=== PATIENT | male | born 1980 | race Hispanic/Latino ===

== ENCOUNTER 2018-02-10 12:51 | Emergency (ER) | payer OTHER ==
[2018-02-10 13:09] VITALS: BP 140/81; PULSE 92; RESP 16; TEMP 98.1; O2SAT 99
--- NOTE | 2018-02-10 13:34 | ED PDOC ---
Upper Extremity Pain/Injury Time Seen by Provider: 02/10/18 13:12 Chief Complaint (Nursing): Upper Extremity Problem/Injury Chief Complaint (Provider): Upper Extremity Pain History Per: Patient History/Exam Limitations: no limitations Onset/Duration Of Symptoms: Days (3x) Current Symptoms Are (Timing): Still Present Quality: "Pain" Severity: Moderate Additional Complaint(s): 37 year old right hand dominant male presents with localized bruise to left forearm that he noticed as of this morning. Patient denies injury to affected area. He denies any numbness or tingling to affected area. Patient states he is concerned about possible clot in arm. He denies any chest pain, SOB or [place]. He denies any recent travel. Patient states for the past 1.5 years he has had pain and numbness to left side of neck and left arm. He has been seen by boiler riveter, neurosurgeon and neurologist and has had multiple CT's and MRI's but no findings have been noted as per patient. PMD: Oswaldo Isabel MD Past Medical History Reviewed: Historical Data, Nursing Documentation, Vital Signs Vital Signs: Last Vital Signs Temp 98.1 F 02/10/18 13:07 Pulse 92 H 02/10/18 13:07 Resp 16 02/10/18 13:07 BP 140/81 02/10/18 13:07 Pulse Ox 99 02/10/18 13:07 - Medical History PMH: No Chronic Diseases - Surgical History Surgical History: Hernia Repair - Family History Family History: States: No Known Family Hx - Living Arrangements Living Arrangements: With Family - Social History Current smoker - smoking cessation education provided: No Alcohol: Social Drugs: Denies - Home Medications Home Medications: Ambulatory Orders Medication Instructions Recorded Naproxen 500 mg PO BID #30 tablet. 02/27/17 Cephalexin [Keflex] 500 mg PO TID #21 capsule 02/10/18 Ibuprofen [Motrin Tab] 800 mg PO Q8 PRN #20 tab 02/10/18 - Allergies Allergies/Adverse Reactions: Allergies Allergy/AdvReac Type Severity Reaction Status Date / Time No Known Allergies Allergy Verified 02/26/17 21:02 Review of Systems ROS Statement: Except As Marked, All Systems Reviewed And Found Negative Constitutional: Negative for: Fever, Chills Cardiovascular: Negative for: Chest Pain, Palpitations Respiratory: Negative for: Shortness of Breath, SOB with Exertion Gastrointestinal: Negative for: Nausea, Vomiting Musculoskeletal: Positive for: Arm Pain (left forearm) Physical Exam - Reviewed Nursing Documentation Reviewed: Yes Vital Signs Reviewed: Yes - Physical Exam Appears: Positive for: Well, Non-toxic, No Acute Distress Head Exam: Positive for: ATRAUMATIC, NORMOCEPHALIC Skin: Positive for: Normal Color. Negative for: Rash Eye Exam: Positive for: Normal appearance Neck: Positive for: Normal Cardiovascular/Chest: Positive for: Regular Rate, Rhythm Respiratory: Positive for: Normal Breath Sounds. Negative for: Wheezing, Respiratory Distress Extremity: Positive for: Other (localized ecchymosis noted to palmar aspect of left forearm in linear distribution, no raised lesions, mild tenderness when palpated, no erythematous streaking, no warmth, normal sensation surrounding affected region, normal distal sensation) Neurologic/Psych: Positive for: Alert, Oriented (3x) - ECG O2 Sat by Pulse Oximetry: 99 (RA) Pulse Ox Interpretation: Normal - Other Rad Doppler left arm X-Ray: Read By Radiologist X-Ray Interpretation: see below Medical Decision Making Medical Decision Makin:12 Initial impression: 37 year old male with left forearm pain Initial plan: * US duplex upper extremities vein left * Patient is declining pain medications in ED. US: IMPRESSION: The left basilic and cephalic veins are not visualized in this study. Otherwise no ultrasound Doppler evidence of deep vein thrombosis in the left upper extremity. Soft tissue swelling without evidence of discrete abscess or drainable fluid collection in the left forearm. Patient aware of x-ray results. All questions answered. Patient states he is concerned about infection despite no clinical presentation indicative of infection. He is requesting rx for abx, keflex given along with rx motrin. Advised PMD follow up in 2-3 days. ____ Scribe Attestation: Documented by Hanna Rivera, acting as a scribe for Lashell Mcgee PA-C. Provider Scribe Attestation: All medical record entries made by the Scribe were at my direction and personally dictated by me. I have reviewed the chart and agree that the record accurately reflects my personal performance of the history, physical exam, medical decision making, and the department course for this patient. I have also personally directed, reviewed, and agree with the discharge instructions and disposition. Disposition - Clinical Impression Clinical Impression: Forearm contusion - Patient ED Disposition Is Patient to be Admitted: No Counseled Patient/Family Regarding: Studies Performed, Diagnosis, Need For Followup, Rx Given - Disposition [facility] Disposition: Routine/Home Disposition Time: 16:48 Condition: STABLE Additional Instructions: Take rx meds as directed. Ice, rest and elevate affected area. Follow up in 1- 2 days with primary care doctor. Prescriptions: Cephalexin [Keflex] 500 mg PO TID #21 capsule Ibuprofen [Motrin Tab] 800 mg PO Q8 PRN #20 tab PRN Reason: Pain, Moderate (4-7) Instructions: Contusion (DC) Forms: [employer] ([employer])
--- NOTE | 2018-02-10 16:46 | US ---
Date of service: 02/10/2018 PROCEDURE: Ultrasound Doppler of the left upper extremity HISTORY: bruising and pain to forearm COMPARISON: No prior similar study available for comparison. TECHNIQUE: Grayscale and color Doppler ultrasound examination of the left upper extremity was performed. FINDINGS: The left jugular brachiocephalic subclavian axillary brachial veins are patent and demonstrate normal venous blood flow. The left basilic and cephalic veins are not clearly visualized. The left ulnar and radial veins are patent. No evidence of fluid collection at the region of bruising in the forearm. IMPRESSION: The left basilic and cephalic veins are not visualized in this study. Otherwise no ultrasound Doppler evidence of deep vein thrombosis in the left upper extremity. Soft tissue swelling without evidence of discrete abscess or drainable fluid collection in the left forearm..
== END 2018-02-10 16:54 | disposition home or self-care (01) ==
LOC: H.ER 12:51
DX: S50.12XA Contusion of left forearm, initial encounter (principal)